=== PATIENT | female | born 1960 | race Caucasian/White ===

== ENCOUNTER 2021-10-02 05:31 | Outpatient (CLI) | payer MEDICAID ==
[~2021-10-02] VITALS: Ht 167.6 cm; Wt 131.5 kg
[2021-10-02] MEDS ORDERED: MONT-40 PO (15:19)
[2021-10-02] MEDS ORDERED: [UNRECOGNIZED DRUG - CODE] PO (15:19)
[2021-10-02] MEDS ORDERED: GUAI120013 PO (15:19)
[2021-10-02] MEDS ORDERED: FERR-84 PO (15:19)
[2021-10-02] MEDS ORDERED: ONDA8TAB13 PO (15:19)
[2021-10-02] MEDS ORDERED: MULT-1136 PO (15:19)
[2021-10-02] MEDS ORDERED: AMIT25TA9 PO (15:19)
[2021-10-02] MEDS ORDERED: MELO7.5T46 PO (15:19)
[2021-10-02] MEDS ORDERED: LOPE-175 PO (15:19)
[2021-10-02] MEDS ORDERED: HYDR-3781 PO (15:19)
[2021-10-02] MEDS ORDERED: LACT1CAP74 PO (15:19)
[2021-10-02] MEDS ORDERED: IPRA4AER IH (15:20)
[2021-10-02] MEDS ORDERED: RT-ALBUINH IH (15:20)
[2021-10-02] MEDS ORDERED: BUDE10.2 IH (15:20)
[2021-10-02] MEDS ORDERED: IPR14IN IH (15:20)
[2021-10-02] MEDS ORDERED: OXYC5CAP18 PO (15:20)
[2021-10-02] MEDS ORDERED: CHOL20003 PO (15:20)
[2021-10-02] MEDS ORDERED: ROPI3TAB4 PO (15:20)
== END 2021-10-02 15:25 | disposition home or self-care (01) ==
LOC: PREOP 05:31
PROVIDERS: ATTEND Otolaryngology Otolaryngology/Facial Plastic Surgery
DX: Z01.818 Encounter for other preprocedural examination (principal)

== ENCOUNTER 2021-10-05 06:13 | Day surgery (SDC) | payer MEDICARE, MEDICAID ==
[~2021-10-05] VITALS: Ht 167.6 cm; Wt 136.0 kg
[2021-10-05] VITALS (10 sets, daily range): BP systolic 86–113; BP diastolic 64–90
[~2021-10-05 06:13] MED LIST: AMIT25TA9 PO; BUDE10.2 IH; CHOL20003 PO; FERR-84 PO; GUAI120013 PO; HYDR-3781 PO; IPR14IN IH; IPRA4AER IH; LACT1CAP74 PO; LOPE-175 PO; MELO7.5T46 PO; MONT-40 PO; MULT-1136 PO; ONDA8TAB13 PO; OXYC5CAP18 PO; ROPI3TAB4 PO; RT-ALBUINH IH; [UNRECOGNIZED DRUG - CODE] PO
[2021-10-05] MEDS ORDERED: LACTATED RINGERS 1,000 ML IV PRN (06:15)
[2021-10-05] MEDS ORDERED: ONDANSETRON 4 MG/2 ML (SDV) Z0FRAN ONE (06:52)
[2021-10-05] MEDS ORDERED: fentaNYL INJ 100 MCG/2 ML AMP ONE (06:52)
[2021-10-05] MEDS ORDERED: proPOfol 200 MG/20 ML (DIPRIVAN) VIAL IV ONE (06:52)
[2021-10-05] MEDS ORDERED: MIDAZOLAM 2 MG/2 ML (VERSED) VIAL ONE (06:52)
[2021-10-05] MEDS ORDERED: SEVOFLURANE (ULTANE) 15 ML INHAL SOLN ONE (06:52)
[2021-10-05] MEDS ORDERED: LIDOCAINE PF 2% 5 ML (XYLOCAINE) VIAL ONE (06:52)
[2021-10-05] MEDS ORDERED: LIDOCAINE/EPI 2% 1:200,00 (XYLOCAINE) 20 ML VIAL ONE (07:02)
--- NOTE | 2021-10-05 07:08 | Progress Note-Pre Operative ---
Pre-Operative Progress Note Date of Available H&P: Oct 05, 2021 Date H&P Reviewed: Oct 05, 2021 Time H&P Reviewed: 06:30 History & Physical: H&P Reviewed, Patient Examed, No changes noted Changes from last HP none Pre-Operative Diagnosis: Bilateral Vocal Cord Lesions PRESLEY VICTOR MD Oct 05, 2021 07:08
--- NOTE | 2021-10-05 07:09 | Progress Note-Post Operative ---
Post-Operative Progess Note Surgeon (s)/Vendor Relationship Manager (s) Surgeon PRSELEY VICTOR MD Vendor Relationship Manager n/a Pre-Operative Diagnosis Bilateral Vocal Cord Lesions Post-Operative Diagnosis same Post-Op Procedure Note Date of Procedure: Oct 05, 2021 Name of Procedure Performed: Direct Laryngoscopy with REmoval of Bialteral Vocal Cord Lesions Description & Findings Description and Findings: n/a Anesthesia Type get Estimated Blood Loss minimal Packing none. Specimen(s) collected/removed bilateral vocal cords lesions sent separately to pathology PRESLEY VICTOR MD Oct 05, 2021 07:09
[2021-10-05] MEDS ORDERED: PROMETHAZINE INJ 25 MG/ML (PHENERGAN) AMP IV PRN (07:15)
[2021-10-05] MEDS ORDERED: HYDROcodone/APAP 5 MG/325 MG (LORTAB) TAB PO PRN (07:15)
[2021-10-05 07:30] LABS: BASOPHILS # (AUTO) 0.1 10^3/uL (0.0-0.1); BASOPHILS % (AUTO) 1 % (0-10); EOSINOPHILS # (AUTO) 0.2 10^3/uL (0.0-0.3); EOSINOPHILS % (AUTO) 1 % (0-10); HEMATOCRIT 44 % (35-52); HEMOGLOBIN 13.8 g/dL (11.5-16.0); LYMPHOCYTES # (AUTO) 3.3 10^3/uL (1.0-4.0); LYMPHOCYTES % (AUTO) 21 % (12-44); MEAN CORPUSCULAR HEMOGLOBIN 23 pg (25-34); MEAN CORPUSCULAR HGB CONC 32 g/dL (32-36); MEAN CORPUSCULAR VOLUME 74 fL (80-99); MEAN PLATELET VOLUME 9.7 fL (9.0-12.2); MONOCYTES # (AUTO) 1.2 10^3/uL (0.0-1.0); MONOCYTES % (AUTO) 8 % (0-12); NEUTROPHILS # (AUTO) 10.4 10^3/uL (1.8-7.8); NEUTROPHILS % (AUTO) 67 % (42-75); PLATELET COUNT 304 10^3/uL (130-400); WHITE BLOOD COUNT 15.6 10^3/uL (4.3-11.0)
[2021-10-05] MEDS ORDERED: IPRA3AMP31 IH (07:35)
[2021-10-05] MEDS ORDERED: ROCURONIUM 50 MG/5 ML (ZEMURON) VIAL IV ONE (07:41)
[2021-10-05 07:48] LABS: CALCIUM 9.3 MG/DL (8.5-10.1); CREATININE SERUM 0.9 MG/DL (0.60-1.30); POTASSIUM 4.4 MMOL/L (3.6-5.0)
[2021-10-05] MEDS ORDERED: HYDROmorphone 2 MG/ML VIAL (DILAUDID) IV ONE (08:00)
[2021-10-05] MEDS ORDERED: ONDANSETRON 4 MG/2 ML (SDV) Z0FRAN IVP PRN (08:00)
[2021-10-05 08:06] LABS: EOSINOPHILS % (MANUAL) 2 %; LYMPHOCYTES % (MANUAL) 18 %; MONOCYTES % (MANUAL) 9 %; NEUTROPHILS % (MANUAL) 68 %; RBC MORPH NORMAL; REACTIVE LYMPHOCYTES 3 %
--- NOTE | 2021-10-05 08:24 | Anesthesia-General Post-Op ---
General Patient Condition Mental Status/LOC: Same as Preop Cardiovascular: Satisfactory Nausea/Vomiting: Absent Respiratory: Satisfactory Pain: Controlled Complications: Absent Post Op Complications Complications None Follow Up Care/Instructions Patient Instructions None needed. Anesthesia/Patient Condition Patient Condition Patient is doing well, no complaints, stable vital signs, no apparent adverse anesthesia problems. No complications reported per nursing. D/C home per [facility] [place] Criteria: Yes SHEYLA WYMAN CRNA Oct 05, 2021 08:24
[2021-10-05] MEDS ORDERED: ACHD5005 PO (08:41)
== END 2021-10-05 09:45 ==
LOC: SDC 06:13
PROVIDERS: ATTEND Otolaryngology Otolaryngology/Facial Plastic Surgery
DX: J38.1 Polyp of vocal cord and larynx (principal); J38.3 Other diseases of vocal cords; F17.210 Nicotine dependence, cigarettes, uncomplicated; E66.01 Morbid (severe) obesity due to excess calories; Z68.42 Body mass index [BMI] 45.0-49.9, adult
CPT/HCPCS: 36415; 80048; 85007; 85027; 87081; 93005